=== PATIENT | female | born 1970 | race Caucasian/White ===

== ENCOUNTER → 2021-10-03 | Outpatient (CLI) | payer OTHER ==
--- NOTE | 2021-10-03 16:16 | REPVR ---
PROCEDURE INFORMATION: Exam: CT Maxillofacial Without Contrast Exam date and time: 10/03/2021 3:46 PM Age: 51 years old Clinical indication: Sinusitis; Chronic; Additional info: Chronic max sinusitus TECHNIQUE: Imaging protocol: Computed tomography images of the face without contrast. Radiation optimization: All CT scans at this facility use at least one of these dose optimization techniques: automated exposure control; mA and/or kV adjustment per patient size (includes targeted exams where dose is matched to clinical indication); or iterative reconstruction. COMPARISON: No relevant prior studies available. FINDINGS: Orbital cavity: Examination reveals bilateral globes to be normal in size and morphology. The optic nerves are normal in thickness and symmetric bilaterally. The extraocular muscles are normal in thickness . The retroconal fat has a normal appearance. The lacrimal glands appear normal bilaterally. Bones/joints: The bony orbital gary are intact. No fractures are identified. The visualized osseous structures are unremarkable. No acute fracture or dislocation is seen. 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 There are no air fluid levels to suggest acute sinusitis. The ostiomeatal complexes are patent bilaterally. There is moderate deviation of the nasal septum towards the right. Mastoid air cells: The visualized mastoid air cells are clear. Soft tissues: Unremarkable. Brain: The visualized brain parenchyma is unremarkable. Dental: Metallic beam hardening artifact from dental hardware limits evaluation in this region. IMPRESSION: 1. 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 There are no air fluid levels to suggest acute sinusitis. 2. The ostiomeatal complexes are patent bilaterally. There is moderate deviation of the nasal septum towards the right. Electronically signed by: Ramy Sandhu On 10/03/2021 16:16:12 PM
== END ==
LOC: M RAD 15:40 → EDBD 15:40
PROVIDERS: ATTEND Otolaryngology
DX: J32.0 Chronic maxillary sinusitis (principal); J34.2 Deviated nasal septum; D16.4 Benign neoplasm of bones of skull and face